=== PATIENT | female | born 1985 | race Caucasian/White ===

== ENCOUNTER 2017-08-02 13:44 | Emergency (ER) | payer MEDICAID, OTHER ==
[2017-08-02 14:08] VITALS: TEMP 97.7
[2017-08-02 14:11] VITALS: RESP 18
--- NOTE | 2017-08-02 14:44 | ED PDOC ---
Arrival/HPI - General Chief Complaint: Female Genitourinary Time Seen by Provider: 08/02/17 14:13 Historian: Patient, Spouse - History of Present Illness Narrative History of Present Illness (Text): 08/02/17 14:35 31 year old female presents to the Emergency department complaining of vaginal bleeding that began last night. Patient described bleeding as heavy when it began but light at this time. Patient also complains of associated intermittent abdominal cramping. Patient claims she is three months ; she has been 4 previous times and has not experienced these symptoms before. Patient has only been to a WIC so far and has her first ADMISSIONS MANAGER RN appointment in four days. Patient denies any fever, chills, chest pain, nausea, vomiting, diarrhea, back pain, neck pain, dizziness, trauma/injury, or any other complaints. Patient also complains of shortness of breath and headaches that occur at night ; this has been ongoing for several weeks/months. ADMISSIONS MANAGER RN: Dr. Deepa Vieira Time/Duration: Other (less than 1 day) Symptom Onset: Gradual Symptom Course: Improving Activities at Onset: Rest Context: Home Past Medical History - Provider Review Nursing Documentation Reviewed: Yes - Psychiatric Hx Psychophysiologic Disorder: No Hx Substance Use: No - Surgical History Hx Section: Yes Family/Social History - Physician Review Nursing Documentation Reviewed: Yes Family/Social History: Unknown Family HX Smoking Status: Never Smoked Hx Alcohol Use: No Hx Substance Use: No Allergies/Home Meds Allergies/Adverse Reactions: Allergies No Known Allergies Allergy (Verified 08/02/17 14:04) Home Medications: Home Meds Medication Instructions Recorded Confirmed No Known Home Med 08/02/17 08/02/17 Review of Systems - Physician Review All systems were reviewed & negative as marked: Yes - Review of Systems Constitutional: absent: Fevers, Night Sweats Respiratory: absent: SOB Cardiovascular: absent: Chest Pain Gastrointestinal: Abdominal Pain (intermittent cramping). absent: Diarrhea, Nausea, Vomiting Genitourinary Female: Vaginal Bleeding Musculoskeletal: absent: Back Pain, Neck Pain Neurological: Headache. absent: Dizziness Physical Exam Vital Signs Reviewed: Yes Vital Signs Temp Pulse Resp BP Pulse Ox 08/02/17 17:01 75 18 106/71 98 08/02/17 15:34 80 18 104/68 98 08/02/17 14:10 97.7 F 89 18 102/61 97 08/02/17 14:05 97.7 F 89 16 102/61 97 Temperature: Afebrile Blood Pressure: Normal Pulse: Regular Respiratory Rate: Normal Appearance: Positive for: Well-Appearing, Non-Toxic, Comfortable Pain Distress: None Mental Status: Positive for: Alert and Oriented X 3 - Systems Exam Head: Present: Atraumatic, Normocephalic Pupils: Present: PERRL Extroacular Muscles: Present: EOMI Conjunctiva: Present: Normal Mouth: Present: Moist Mucous Membranes Neck: Present: Normal Range of Motion Respiratory/Chest: Present: Clear to Auscultation, Good Air Exchange. No: Respiratory Distress, Accessory Muscle Use Cardiovascular: Present: Regular Rate and Rhythm, Normal S1, S2. No: Murmurs Abdomen: No: Tenderness, Distention, Peritoneal Signs Back: Present: Normal Inspection Upper Extremity: Present: Normal Inspection. No: Cyanosis, Edema Lower Extremity: Present: Normal Inspection. No: Edema Neurological: Present: GCS=15, CN II-XII Intact, Speech Normal Skin: Present: Warm, Dry, Normal Color. No: Rashes Psychiatric: Present: Alert, Oriented x 3, Normal Insight, Normal Concentration Medical Decision Making ED Course and Treatment: 08/02/17 14:46 Impression: 31 year old female presents to the Emergency department complaining of vaginal bleeding that began last night. Plan: -- Transvaginal US -- Urinalysis, urine test -- Labs -- Reassess and disposition Progress Notes: 08/02/17 17:21 Transabdominal Ultrasound IMPRESSION: Single living intrauterine gestation of 14 weeks 6 days. Incomplete posterior placenta previa with small marginal bleed. Recommend short- term followup. Anatomic survery between 18 and 22 weeks. Dictator: Danielle Lainez MD 08/02/17 18:00 Patient was told about pelvic rest, to have no intercourse, no longer use tampons, and to make certain to visit OB 08/06/2017. Also regarding insurance, patient must have pay stubs, bank staetment, marriage certificate, and certificates of children. Patient told about US, which shoed placenta is close to cervix, and that called placenta prevea. - Lab Interpretations Lab Results: 08/02/17 14:40 08/02/17 14:40 Lab Results 08/02/17 15:37: Blood Type Confirm AB POSITIVE 08/02/17 14:40: Blood Type AB POSITIVE, Antibody Screen Negative, BBK History Checked No verified bt 08/02/17 14:40: Beta HCG, Quant 92546.00 H 08/02/17 14:40: Sodium 140, Potassium 3.6, Chloride 104, Carbon Dioxide 26, Anion Gap 14, BUN 9, Creatinine 0.5 L, Est GFR ( Amer) > 60, Est GFR (Non -Af Amer) > 60, Random Glucose 93, Calcium 9.3, Total Bilirubin 0.3, AST 19, ALT 15, Alkaline Phosphatase 43, Total Protein 7.9, Albumin 4.2, Globulin 3.7, Albumin/Globulin Ratio 1.1 08/02/17 14:40: PT 11.5, INR 1.01 08/02/17 14:40: WBC 8.1, RBC 4.03, Hgb 10.9 L, Hct 32.6 L, MCV 80.9, MCH 27.0, MCHC 33.4, RDW 13.9, Plt Count 283, MPV 10.2, Gran % 73.4 H, Lymph % (Auto) 19.7 L, [place] % (Auto) 5.4, Eos % (Auto) 1.4 L, Baso % (Auto) 0.1, Gran # 5.96, Lymph # (Auto) 1.6, [place] # (Auto) 0.4, Eos # (Auto) 0.1, Baso # (Auto) 0.01 08/02/17 14:15: Urine Color Light yellow, Urine Appearance Sl cloudy, Urine pH 6.0, Ur Specific [place] 1.015, Urine Protein Negative, Urine Glucose (UA) Negative, Urine Ketones Negative, Urine Blood Moderate H, Urine Nitrate Negative , Urine Bilirubin Negative, Urine Urobilinogen 0.2, Ur Leukocyte Esterase Small H, Urine RBC 2 - 5, Urine WBC 1 - 3, Ur Epithelial Cells 1 - 3, Urine Bacteria Trace - RAD Interpretation Radiology Orders: 08/02/17 14:36 AGE [US] Stat - Scribe Statement The provider has reviewed the documentation as recorded by the Scribe Gabriel Hancock All medical record entries made by the Scribe were at my direction and personally dictated by me. I have reviewed the chart and agree that the record accurately reflects my personal performance of the history, physical exam, medical decision making, and the department course for this patient. I have also personally directed, reviewed, and agree with the discharge instructions and disposition. Disposition/Present on Arrival - Present on Arrival Any Indicators Present on Arrival: Yes History of DVT/PE: No History of Uncontrolled Diabetes: No Urinary Catheter: No History of Decub. Ulcer: No History Surgical Site Infection Following: None - Disposition Have Diagnosis and Disposition been Completed?: Yes Diagnosis: Threatened Disposition Time: 17:54 Patient Plan: Discharge Patient Problems: Current Active Problems Problem Status Onset Threatened Acute Condition: GOOD Discharge Instructions (ExitCare): Threatened Miscarriage (DC) Referrals: PCP,NO [Primary Care Provider] - Follow up with primary Forms: [facility] (Yi), WORK NOTE, SCHOOL NOTE
[2017-08-02 14:51] LABS: URINE BILIRUBIN NEGATIVE (NEGATIVE); URINE BLOOD MODERATE (NEGATIVE); URINE GLUCOSE (UA) NEGATIVE (NEGATIVE); URINE LEUKOCYTE ESTERASE SMALL Leu/uL (NEGATIVE); URINE PROTEIN NEGATIVE mg/dL (<30 mg/dL); URINE UROBILINOGEN 0.2 E.U./dL (<1 E.U./dL)
[2017-08-02 14:55] LABS: URINE APPEARANCE SL CLOUDY (CLEAR); URINE COLOR LIGHT YELLOW (YELLOW)
[2017-08-02 14:59] LABS: URINE BACTERIA TRACE (NEG)
[2017-08-02 15:03] LABS: BASO # 0.01 K/mm3 (0.0-2.0); BASO % 0.1 % (0.0-3.0); EOS # 0.1 (0.0-0.7); EOS % 1.4 % (1.5-5.0); GRAN # 5.96 (1.4-6.5); GRAN % 73.4 % (50.0-68.0); HEMOGLOBIN 10.9 g/dL (12.0-16.0); LYMPH # 1.6 (1.2-3.4); LYMPH % 19.7 % (22.0-35.0); MEAN CELL VOLUME 80.9 fl (80.0-105.0); MEAN CORPUSCULAR HGB CONC 33.4 g/dl (31.0-37.0); MEAN PLATELET VOLUME 10.2 fl (7.0-11.0); MONO # 0.4 (0.1-0.6); MONO % 5.4 % (1.0-6.0); RBC 4.03 10^6/uL (3.5-6.1); RED CELL DISTRIBUTION WIDTH 13.9 % (11.5-14.5); WHITE BLOOD COUNT 8.1 10^3/ul (4.5-11.0)
[2017-08-02 15:12] LABS: ALB/GLOB RATIO 1.1 (1.1-1.8); ALBUMIN 4.2 g/dL (3.0-4.8); ALT/SGPT 15 U/L (7-56); AST/SGOT 19 U/L (14-36); BLOOD UREA NITROGEN 9 mg/dL (7-21); CALCIUM 9.3 mg/dL (8.4-10.5); GFR NON-AFRICAN AMERICAN > 60
[2017-08-02 15:16] LABS: INR 1.01 (0.93-1.08); PROTHROMBIN TIME 11.5 SECONDS (9.4-12.5)
[2017-08-02 15:35] VITALS: O2SAT 98
[2017-08-02 17:01] VITALS: BP 106/71; PULSE 75
--- NOTE | 2017-08-04 16:20 | US ---
PROCEDURE: Second trimester ultrasound HISTORY: Viability, Vag Bleeding, 12 weeks by dates COMPARISON: Spell TECHNIQUE: Standard protocol for this study/examination. FINDINGS: Transverse presentation. Posterior, low-lying Placenta. Incomplete placenta previa with small marginal bleed Gestational age derived from LMP unknown. RAMONA Cannot be ascertained based in the absence of a reliable/ known LMP. Gestational age derived from the following biometric parameters 14 weeks 6 days. RAMONA January 25, 2018 Biparietal diameter 2.72 cm Head circumference 9.96 cm Abdominal circumference 9.01 cm Femur length cm Estimated weight 1.590742.7 g Calculated cardiac rate 03/26/2004 beats per min. Closed cervix measuring 3.91 cm IMPRESSION: Incomplete placenta previa with small marginal bleeding. Fourteen weeks 6 days live intrauterine gestation. Concordant results (preliminary interpretation) provided by [facility]. Procedure Completed: 15:30 Preliminary ([facility]) Report: Dictated and Authenticated: 17:21 Final Interpretation: 16:18 August 04, 2017.
== END 2017-08-02 18:08 | disposition home or self-care (01) ==
LOC: ED 13:44
DX: O20.0 Threatened abortion (principal); Z3A.14 14 weeks gestation of pregnancy

== ENCOUNTER 2017-12-05 04:43 | Emergency (ER) | payer OTHER ==
[2017-12-05 04:57] VITALS: BMI 23.8
--- NOTE | 2017-12-05 05:33 | ED PDOC ---
Arrival/HPI - General Chief Complaint: Substance Abuse Time Seen by Provider: 12/05/17 04:52 Historian: Patient - History of Present Illness Narrative History of Present Illness (Text): 12/05/17 05:28 32 year old female, who is currently 8 months , presents to the Emergency department s/p overdose. As per , pt took 6 tablets of Flexeril. Pt's is unsure why or when the pt did this. Pt appeared agitated and somnolent and was brought to Emergency department. Full HPI and ROS limited due to patient's condition. Time/Duration: Prior to Arrival Symptom Onset: Sudden Symptom Course: Unchanged Context: Home Past Medical History - Provider Review Nursing Documentation Reviewed: Yes - Psychiatric Hx Psychophysiologic Disorder: No Hx Substance Use: No - Surgical History Hx Section: Yes - Anesthesia Hx Anesthesia: Yes Family/Social History - Physician Review Nursing Documentation Reviewed: Yes Family/Social History: Unknown Family HX Smoking Status: Never Smoked Hx Alcohol Use: No Hx Substance Use: No Allergies/Home Meds Allergies/Adverse Reactions: Allergies No Known Allergies Allergy (Verified 08/02/17 14:04) Home Medications: Home Meds Medication Instructions Recorded Confirmed No Known Home Med 08/02/17 08/02/17 Review of Systems - Review of Systems Systems not reviewed;Unavailable: Acuity of Condition Physical Exam Vital Signs Reviewed: Yes Vital Signs Temp Pulse Resp BP Pulse Ox 12/05/17 04:59 97.8 F 109 H 16 108/77 98 Temperature: Afebrile Blood Pressure: Normal Pulse: Tachycardic Respiratory Rate: Normal Appearance: Positive for: Well-Appearing, Non-Toxic, Comfortable Pain Distress: None Mental Status: Positive for: Alert and Oriented X 3 - Systems Exam Head: Present: Atraumatic, Normocephalic Pupils: Present: PERRL Extroacular Muscles: Present: EOMI Conjunctiva: Present: Normal Mouth: Present: Moist Mucous Membranes Neck: Present: Normal Range of Motion Respiratory/Chest: Present: Clear to Auscultation, Good Air Exchange. No: Respiratory Distress, Accessory Muscle Use Cardiovascular: Present: Regular Rate and Rhythm, Normal S1, S2. No: Murmurs Abdomen: Present: Distention (abdomen distended, normal for gestational period) . No: Tenderness, Peritoneal Signs Back: Present: Normal Inspection Upper Extremity: Present: Normal Inspection. No: Cyanosis, Edema Lower Extremity: Present: Normal Inspection. No: Edema Neurological: Present: GCS=15, CN II-XII Intact, Speech Normal Skin: Present: Warm, Dry, Normal Color. No: Rashes Psychiatric: Present: Alert, Agitated, Other (poorly communicative) Medical Decision Making ED Course and Treatment: 12/05/17 05:34 Impression: 32 year old female presents to the emergency department s/p overdose. Plan: -- EKG -- Labs -- Urinalysis -- Cardiac ISO -- Reassess and disposition Progress Notes: 12/05/17 06:00 Poison control was notified earlier.Treatment discussed/Will IV fluids/monitor/ supportive care/reassess 12/05/17 07:10 Case endorsed to /pending medical clearance/PES evaluation/final disposition - Lab Interpretations Lab Results: 12/05/17 04:50 12/05/17 04:50 Lab Results 12/05/17 04:50: Alcohol, Quantitative < 10 12/05/17 04:50: Salicylates < 1 L, Acetaminophen < 10.0 L 12/05/17 04:50: WBC 9.0, RBC 3.73, Hgb 9.7 L, Hct 30.2 L, MCV 81.0, MCH 26.0, MCHC 32.1, RDW 13.6, Plt Count 217, MPV 10.7 12/05/17 04:50: Sodium 136, Potassium 3.6, Chloride 105, Carbon Dioxide 23, Anion Gap 12, BUN 6 L, Creatinine 0.4 L, Est GFR ( Amer) > 60, Est GFR ( Non-Af Amer) > 60, Random Glucose 110, Calcium 8.8, Total Bilirubin 0.3, AST 29 , ALT 13, Alkaline Phosphatase 159 H D, Lactate Dehydrogenase 633, Total Creatine Kinase 115, Troponin I 0.01, Total Protein 7.5, Albumin 3.7, Globulin 3.8, Albumin/Globulin Ratio 1.0 L - RAD Interpretation Radiology Orders: 12/05/17 06:22 AGE [US] Stat - EKG Interpretation EKG Interpretation (Text): 12/05/17 06:10 EKG-NSR@88,normal ekg Interpreted by ED Physician: Yes Type: 12 lead EKG - Medication Orders Current Medication Orders: Discontinued Medications Sodium Chloride (Sodium Chloride 0.9%) 1,000 mls @ 999 mls/hr IV .Q1H1M STA Stop: 12/05/17 07:00 Last Admin: 12/05/17 06:15 Dose: 999 mls/hr eMAR Start Stop Document 12/05/17 06:15 AD (Rec: 12/05/17 06:52 AD [facility] [id number]) Intravenous Solution Start Date 12/05/17 Start Time 06:15 - Scribe Statement The provider has reviewed the documentation as recorded by the Scribelizabeth Villalobos All medical record entries made by the Scribelizabeth were at my direction and personally dictated by me. I have reviewed the chart and agree that the record accurately reflects my personal performance of the history, physical exam, medical decision making, and the department course for this patient. I have also personally directed, reviewed, and agree with the discharge instructions and disposition. Disposition/Present on Arrival - Present on Arrival Any Indicators Present on Arrival: No History of DVT/PE: No History of Uncontrolled Diabetes: No Urinary Catheter: No History of Decub. Ulcer: No History Surgical Site Infection Following: None - Disposition Have Diagnosis and Disposition been Completed?: No Diagnosis: Drug overdose Disposition Time: 07:16 Patient Problems: Current Active Problems Problem Status Onset Drug overdose Acute Condition: STABLE Forms: [employer] (Amharic)
[2017-12-05 05:54] LABS: HEMOGLOBIN 9.7 g/dL (12.0-16.0); MEAN CORPUSCULAR HGB CONC 32.1 g/dl (31.0-37.0); MEAN PLATELET VOLUME 10.7 fl (7.0-11.0); RBC 3.73 10^6/uL (3.5-6.1); RED CELL DISTRIBUTION WIDTH 13.6 % (11.5-14.5)
[2017-12-05] MEDS ORDERED: Sodium Chloride 0.9% 1,000 ML IV STA (06:00)
[2017-12-05 06:14] LABS: ALBUMIN 3.7 g/dL (3.0-4.8); ALT/SGPT 13 U/L (7-56); AST/SGOT 29 U/L (14-36); BLOOD UREA NITROGEN 6 mg/dL (7-21); CALCIUM 8.8 mg/dL (8.4-10.5); GFR NON-AFRICAN AMERICAN > 60
[2017-12-05 06:15] LABS: ACETAMINOPHEN < 10.0 ug/ml (10.0-20.0); SALICYLATE < 1 mg/dL (2.0-20.0)
[2017-12-05 06:24] LABS: TROPONIN I 0.01 ng/mL
--- NOTE | 2017-12-05 07:17 | ED PDOC ---
Physical Exam Vital Signs Reviewed: Yes Vital Signs Temp Pulse Resp BP Pulse Ox 12/05/17 12:23 87 18 104/83 100 12/05/17 10:00 97 H 16 96/56 L 99 12/05/17 07:41 98 F 91 H 17 90/50 L 99 12/05/17 05:45 88 18 107/79 99 12/05/17 04:59 97.8 F 109 H 16 108/77 98 Temperature: Afebrile Blood Pressure: Normal Pulse: Tachycardic Respiratory Rate: Normal Appearance: Positive for: Well-Appearing, Non-Toxic, Comfortable Pain Distress: None Mental Status: Positive for: Alert and Oriented X 3 Medical Decision Making ED Course and Treatment: 12/05/17 07:16 Patient endorsed to me by Dr. Trujillo. Patient is a 32 year old female presenting to the emergency department for overdose. Exam results are pending. 12/05/17 13:28 \\ Pt remains with stable vital sugns, protecting arway. However although rousing to a coherent snesorium, it is waxing and waning. While interviewd with an shipsmith , pt repeatedly endorsed suicdality , and suicidal intention in her overdose of the flexeril tabs . Reason being " she's tired of the children." SHe deneis any acute pains/ cardiorespiratory symptoms nor any headache, nor abdominal or other corepoal pain , nor recent vagnal discharge nor symtoms of infective foci . ekg : NSR @ 88 bpm , no ichemic st-t- segments nor arrythmogenic intervals . pt has received a total of 2 L ivns serial neurological exams benign . Pt deosn't remember the total number of flexeril tabs taken only saying " I took the whole bottle ." She is unclear if there was any other co ingestants taken nor the time of ingestion. She denies any prior psychiatric history , problem with this current nor recent altercation with her . 12/05/17 13:34 Dr. Abiodun Osorio the systems integration manager mason liner was consulted in the management of this case and he advised transfer to [facility] [place] as 1) this may have been hgh risk , and is now considered hig risk s/p ingestion, and [facility] lacks the resources to deal with such a patient . 2) here is no oncall psychiatry at [facility] available until Thursday coming. - Lab Interpretations Lab Results: 12/05/17 04:50 12/05/17 04:50 Lab Results 12/05/17 12:30: Urine Opiates Screen Negative, Urine Methadone Screen Negative, Ur Barbiturates Screen Negative, Ur Phencyclidine Scrn Negative, Ur Amphetamines Screen Negative, U Benzodiazepines Scrn Negative, U Oth Cocaine Metabols Negative, U Cannabinoids Screen Negative 12/05/17 12:30: Urine Color Light yellow, Urine Appearance Clear, Urine pH 6.5, Ur Specific [place] 1.015, Urine Protein Negative, Urine Glucose (UA) Negative, Urine Ketones Negative, Urine Blood Negative, Urine Nitrate Negative, Urine Bilirubin Negative, Urine Urobilinogen 0.2, Ur Leukocyte Esterase Negative 12/05/17 06:35: Lactic Acid 2.0 12/05/17 06:35: Magnesium 1.9 12/05/17 04:50: Alcohol, Quantitative < 10 12/05/17 04:50: Salicylates < 1 L, Acetaminophen < 10.0 L 12/05/17 04:50: WBC 9.0, RBC 3.73, Hgb 9.7 L, Hct 30.2 L, MCV 81.0, MCH 26.0, MCHC 32.1, RDW 13.6, Plt Count 217, MPV 10.7 12/05/17 04:50: Sodium 136, Potassium 3.6, Chloride 105, Carbon Dioxide 23, Anion Gap 12, BUN 6 L, Creatinine 0.4 L, Est GFR ( Amer) > 60, Est GFR ( Non-Af Amer) > 60, Random Glucose 110, Calcium 8.8, Total Bilirubin 0.3, AST 29 , ALT 13, Alkaline Phosphatase 159 H D, Lactate Dehydrogenase 633, Total Creatine Kinase 115, Troponin I 0.01, Total Protein 7.5, Albumin 3.7, Globulin 3.8, Albumin/Globulin Ratio 1.0 L - RAD Interpretation Radiology Orders: 12/05/17 06:22 AGE [US] Stat - Medication Orders Current Medication Orders: Discontinued Medications Sodium Chloride (Sodium Chloride 0.9%) 1,000 mls @ 999 mls/hr IV .Q1H1M STA Stop: 12/05/17 07:00 Last Admin: 12/05/17 06:15 Dose: 999 mls/hr eMAR Start Stop Document 12/05/17 06:15 AD (Rec: 12/05/17 06:52 AD [facility] [id number] Intravenous Solution Start Date 12/05/17 Start Time 06:15 Disposition/Present on Arrival - Present on Arrival Any Indicators Present on Arrival: No History of DVT/PE: No History of Uncontrolled Diabetes: No Urinary Catheter: No History of Decub. Ulcer: No History Surgical Site Infection Following: None - Disposition Have Diagnosis and Disposition been Completed?: Yes Diagnosis: Drug overdose, Disposition: Transfer [facility] [place] Disposition Time: 13:34 Patient Plan: Transfer To Patient Problems: Current Active Problems Problem Status Onset Drug overdose Acute Condition: STABLE Print Language: DIVEHI Referrals: Kenneth Gan MD [Primary Care Provider] - Follow up with primary Forms: [employer] (Gabonese)
[2017-12-05 07:42] VITALS: TEMP 98
--- NOTE | 2017-12-05 09:31 | CARD ---
APPROVED REPORT Date of service: 12/05/2017 EKG Measurement Heart [id number] <Conclusion> Normal sinus rhythm Normal ECG
[2017-12-05 12:37] LABS: PH,URINE 6.5 (4.7-8.0); URINE APPEARANCE CLEAR (CLEAR); URINE BILIRUBIN NEGATIVE (NEGATIVE); URINE BLOOD NEGATIVE (NEGATIVE); URINE COLOR LIGHT YELLOW (YELLOW); URINE GLUCOSE (UA) NEGATIVE (NEGATIVE); URINE LEUKOCYTE ESTERASE NEGATIVE Leu/uL (NEGATIVE); URINE PROTEIN NEGATIVE mg/dL (<30 mg/dL); URINE UROBILINOGEN 0.2 E.U./dL (<1 E.U./dL)
[2017-12-05 13:12] LABS: BARBITURATES, UR NEGATIVE (NEGATIVE); BENZODIAZEPINES, UR NEGATIVE (NEGATIVE); OPIATES, UR NEGATIVE (NEGATIVE); PHENCYCLIDINE, UR NEGATIVE (NEGATIVE)
--- NOTE | 2017-12-05 13:29 | US ---
Date of service: 12/05/2017 PROCEDURE: age HISTORY: /overdose COMPARISON: TECHNIQUE: The study is limited by the patient's lack of cooperation. The patient kept turning into the decubitus position. FINDINGS: The placenta is anterior and to the left. The placenta is clear of the os. The fetus is in a cephalic position. There is motion and heart motion with a heart rate of 145. BPD equals 33 weeks 6 days Abdominal circumference equals 34 weeks 2 days Head circumference equals 33 weeks 2 days Femur length equals 33 weeks 5 days. Mean ultrasound age 33 weeks 6 days. Estimated date of delivery 01/17/2018. PAULA equals 13.13 cm. IMPRESSION: Single viable intrauterine with a gestational age of 33 weeks 6 days.
[2017-12-05 14:10] VITALS: O2SAT 99
[2017-12-05 16:55] VITALS: RESP 17
[2017-12-05 17:08] VITALS: BP 98/49; PULSE 88
== END 2017-12-05 17:15 | disposition short-term general hospital (02) ==
LOC: ED 04:43
DX: O9A.213 Injury, poisoning and certain other consequences of external causes complicating pregnancy, third trimester (principal); Z3A.33 33 weeks gestation of pregnancy
CPT/HCPCS: 76815; 80053; 80320; 80324; 80329; 80345; 80346; 80349; 80353; 80358; 80361; 81003; 82550; 83605; 83615; 83735; 83992; 84484; 85027; 93005; 99285; J7030